=== PATIENT | male | born 1975 | race Caucasian/White ===

== ENCOUNTER 2022-05-24 13:55 | Emergency (ER) | payer SELFPAY | END 2022-05-24 14:59 | disposition home or self-care (01) | LOC: ERS 13:55 | DX: M25.572 Pain in left ankle and joints of left foot (principal) ==

== ENCOUNTER 2023-01-01 12:10 | Emergency (ER) | payer BC, SELFPAY ==
[2023-01-01 13:16] LABS: #Basophils 0.1 thou/uL (0.0-0.2); #Eosinphils 0.3 thou/uL (0.0-0.7); #Lymphocytes 2.3 thou/uL (1.20-3.40); #Monocytes 0.5 thou/uL (0.11-0.59); #Neutrophils 7.2 thou/uL (1.40-6.50); %Basophils 0.7 % (0.0-1.0); %Eosinophils 2.6 % (0.0-10.0); %Lymphocytes 22.5 % (21.0-51.0); %Monocytes 5.1 % (0.0-10.0); %Neutrophils 69.1 % (42.0-75.0); Mean Corpuscular HGB CONC 33.7 g/dL (32.0-36.0); Mean Corpuscular Hemoglobin 30.9 pg (27.0-31.0); Mean Corpuscular Volume 91.9 fl (78.0-98.0); Mean Platelet Volume 6.6 fL (7.4-10.4); Platelet Count 336 10x3/uL (130-400); RBC Distribution Width 12.8 % (11.5-14.5); Red Blood Cell (RBC) Count 5.51 mill/uL (4.70-6.10); White Blood Cell (WBC) Count 10.3 10x3/uL (4.8-10.8)
[2023-01-01 13:41] LABS: ALT (SGPT) 21 U/L (8-55); AST (SGOT) 16 U/L (5-34); Albumin 4.6 g/dL (3.5-5.0); Alkaline Phosphatase 56 U/L (40-110); Anion Gap 13 mmol/L (10-20); BUN (Urea Nitrogen) 12 mg/dL (8.9-20.6); Bilirubin, Total 2.2 mg/dL (0.2-1.2); Calc. Creatinine Clearance 0 mL/min (70-130); Calcium 9.3 mg/dL (7.8-10.44); Carbon Dioxide 23 mmol/L (22-29); Chloride 103 mmol/L (98-107); Estimated GFR 106; Globulin 2.8 g/dL (2.4-3.5); Glucose 186 mg/dL (70-105); Magnesium 1.8 mg/dL (1.6-2.6); Potassium 4.2 mmol/L (3.5-5.1); Protein, Total 7.4 g/dL (6.0-8.3); Sodium 135 mmol/L (136-145)
[2023-01-01] MEDS ORDERED: Metoclopramide HCl 10 MG/2 ML VIAL ONE (14:26)
[2023-01-01] MEDS ORDERED: Ketorolac Tromethamine 30 MG/ML VIAL ONE (14:26)
[2023-01-01] MEDS ORDERED: diphenhydrAMINE 50 MG/ML VIAL ONE ×2 (14:26→14:27)
[2023-01-01] MEDS ORDERED: Magnesium 2 GM/50 ML BAG (IN WATER) ONE (14:26)
[2023-01-01] MEDS ORDERED: Lidocaine 1% PF 5 ML VIAL ONE (16:26)
[2023-01-01] MEDS ORDERED: Dexamethasone 4 MG TAB ONE (17:03)
== END 2023-01-01 17:40 | disposition home or self-care (01) ==
LOC: ERS 12:10
DX: G43.909 Migraine, unspecified, not intractable, without status migrainosus (principal); M26.81 Anterior soft tissue impingement; I10 Essential (primary) hypertension; E78.5 Hyperlipidemia, unspecified; E11.9 Type 2 diabetes mellitus without complications; Z79.4 Long term (current) use of insulin
CPT/HCPCS: 36415; 70450; 71045; 80053; 83735; 84484; 85025; 93005; 96374; 96375; J1200; J1885; J2765; J3475; J8540

== ENCOUNTER 2023-11-12 14:43 | Emergency (ER) | payer BC ==
[2023-11-12] MEDS ORDERED: Dexamethasone 10 MG/ML VIAL ONE (16:01)
[2023-11-12] MEDS ORDERED: HYDROmorphone 0.5 MG/0.5 ML SYRINGE ONE (16:01)
[2023-11-12] MEDS ORDERED: Ondansetron ODT 4 MG TAB ONE (16:02)
== END 2023-11-12 18:05 | disposition home or self-care (01) ==
LOC: ERS 14:43
DX: M54.42 Lumbago with sciatica, left side (principal); E11.9 Type 2 diabetes mellitus without complications; I10 Essential (primary) hypertension; F17.220 Nicotine dependence, chewing tobacco, uncomplicated; Z79.4 Long term (current) use of insulin
CPT/HCPCS: 99283; J1100; J1170; Q0162

== ENCOUNTER 2023-11-13 15:02 | Outpatient (CLI) | payer BC | END 2023-11-13 15:03 | disposition home or self-care (01) | LOC: RAD 15:02 | PROVIDERS: ATTEND Family Medicine | DX: M25.551 Pain in right hip (principal); M16.11 Unilateral primary osteoarthritis, right hip ==

== ENCOUNTER 2023-12-02 10:14 | Day surgery (SDC) | payer BC ==
[2023-11-29 12:40] VITALS: BMI 32.3
[2023-12-02] MEDS ORDERED: Midazolam HCl 2 mg/2 ml Vial ONE (11:47)
[2023-12-02] MEDS ORDERED: fentaNYL PF 100 MCG/2 ML SYRINGE ONE (11:47)
[2023-12-02 12:35] LABS: Anion Gap 11 mmol/L (10-20); BUN (Urea Nitrogen) 9 mg/dL (8.9-20.6); Calc. Creatinine Clearance 158 mL/min (70-130); Calcium 8.9 mg/dL (7.8-10.44); Carbon Dioxide 25 mmol/L (22-29); Chloride 104 mmol/L (98-107); Estimated GFR 113; Glucose 282 mg/dL (70-105); Potassium 4.2 mmol/L (3.5-5.1); Sodium 136 mmol/L (136-145)
[2023-12-02] MEDS ORDERED: PROPOFOL 200 MG/20 ML VIAL ONE (13:00)
== END 2023-12-02 14:43 | disposition home or self-care (01) ==
LOC: MRI 10:14
PROVIDERS: ATTEND Family Medicine
DX: M54.16 Radiculopathy, lumbar region (principal); M54.31 Sciatica, right side; M25.551 Pain in right hip; E11.9 Type 2 diabetes mellitus without complications; I10 Essential (primary) hypertension; E78.5 Hyperlipidemia, unspecified; K21.9 Gastro-esophageal reflux disease without esophagitis; Z79.85 Long-term (current) use of injectable non-insulin antidiabetic drugs; Z79.84 Long term (current) use of oral hypoglycemic drugs; Z79.899 Other long term (current) drug therapy; Z88.5 Allergy status to narcotic agent; Z88.7 Allergy status to serum and vaccine
CPT/HCPCS: 36416; 72148; 80048; 93005; 93010; J2250; J2704